=== PATIENT | male | born 1975 | race Caucasian/White ===

== ENCOUNTER → 2016-11-07 | Outpatient (REF) | payer OTHER ==
[2016-11-07 11:52] LABS: BASO % 0.5 % (0.0-1.0); EOS % 0.5 % (0.0-3.0); LYMPH % 25.5 % (24.0-44.0); MEAN CORPUSCULAR HEMOGLOBIN 29.1 pg (27.0-33.0); MEAN CORPUSCULAR HGB CONC 34.7 g/dl (32.0-36.5); MEAN CORPUSCULAR VOLUME 84.1 fl (80.0-96.0); MONO # 0.3 K/mm3 (0.0-0.8); MONO % 4.1 % (0.0-5.0); NEUTROPHILS # 5.3 K/mm3 (1.8-7.7); NEUTROPHILS % 67.6 % (36.0-66.0); RED CELL DISTRIBUTION WIDTH 12.9 % (11.5-14.5); WHITE BLOOD COUNT 7.8 K/mm3 (4.0-10.0)
[2016-11-07 12:13] LABS: ALBUMIN 4.4 GM/DL (3.2-5.2); ALBUMIN/GLOBULIN RATIO 1.26 (1.00-1.93); ALKALINE PHOSPHATASE 58 U/L (45-117); ALT/SGPT 36 U/L (12-78); ANION GAP 9 MEQ/L (8-16); AST/SGOT 18 U/L (15-37); BILIRUBIN,TOTAL 0.6 MG/DL (0.2-1.0); BLOOD UREA NITROGEN 14 MG/DL (7-18); CALCIUM LEVEL 9.4 MG/DL (8.5-10.1); CARBON DIOXIDE LEVEL 29 MEQ/L (21-32); CHLORIDE LEVEL 103 MEQ/L (98-107); CHOLESTEROL LEVEL 235 MG/DL (<200); CREATININE FOR GFR 1.13 MG/DL (0.70-1.30); GLOMERULAR FILTRATION RATE > 60.0 (>60); GLUCOSE, FASTING 92 MG/DL (70-105); POTASSIUM SERUM 4.1 MEQ/L (3.5-5.1); SODIUM LEVEL 141 MEQ/L (136-145); TOTAL PROTEIN 7.9 GM/DL (6.4-8.2); TRIGLYCERIDES LEVEL 177 MG/DL (<150)
== END ==
LOC: M LABDRAW1 11:34
PROVIDERS: ATTEND Physician Assistant Medical
DX: E78.2 Mixed hyperlipidemia (principal)

== ENCOUNTER → 2017-09-28 | Outpatient (REF) | payer OTHER | LOC: M LAB REF 14:38 | PROVIDERS: ATTEND Physician Assistant | DX: R30.0 Dysuria (principal) ==

== ENCOUNTER → 2018-04-03 | Outpatient (REF) | payer OTHER ==
[2018-04-03 13:06] LABS: BASO % 0.4 % (0.0-1.0); EOS % 0.5 % (0.0-3.0); HEMATOCRIT 47.5 % (42.0-52.0); HEMOGLOBIN 16.3 g/dl (13.5-17.5); IMMATURE GRANULOCYTE % 0.3 % (0-3.0); LYMPH % 26.3 % (24.0-44.0); MEAN CORPUSCULAR HGB CONC 34.3 g/dl (32.0-36.5); MEAN CORPUSCULAR VOLUME 84.4 fl (80.0-96.0); MONO # 0.4 10^3/uL (0.0-0.8); MONO % 4.7 % (0.0-5.0); NEUTROPHILS # 5.2 10^3/uL (1.8-7.7); NEUTROPHILS % 67.8 % (36.0-66.0); PLATELET COUNT, AUTOMATED 277 10^3/uL (150-450); RED BLOOD COUNT 5.63 10^6/uL (4.30-6.10); RED CELL DISTRIBUTION WIDTH 12.6 % (11.5-14.5); WHITE BLOOD COUNT 7.6 10^3/uL (4.0-10.0)
[2018-04-03 13:40] LABS: CONTROL LINE MONO INT CTR LINE PRESENT; MONO SCRN NEGATIVE (NEGATIVE)
[2018-04-03 14:36] LABS: CHLAMYDIA DNA AMPLIFICATION NEGATIVE (NEGATIVE); GC DNA AMPLIFICATION NEGATIVE (NEGATIVE)
[2018-04-05 00:08] LABS: Lyme Disease IgG/IgM Antibodie <0.91 ISR (0.00-0.90); Lyme Disease IgM Ab Quantitati <0.80 index (0.00-0.79)
== END ==
LOC: M LAB REF 12:52
DX: R39.15 Urgency of urination (principal); M25.50 Pain in unspecified joint; R53.83 Other fatigue

== ENCOUNTER → 2018-05-01 | Outpatient (CLI) | payer OTHER | LOC: M WUC 17:41 | DX: M25.522 Pain in left elbow (principal) | CPT/HCPCS: 73080 ==

== ENCOUNTER 2018-05-14 07:36 | Emergency (ER) | payer OTHER | END 2018-05-14 09:13 | disposition home or self-care (01) | LOC: M ED 07:36 | DX: S90.32XA Contusion of left foot, initial encounter (principal); W20.8XXA Other cause of strike by thrown, projected or falling object, initial encounter; Y92.89 Other specified places as the place of occurrence of the external cause; F17.200 Nicotine dependence, unspecified, uncomplicated | CPT/HCPCS: 73630 ==

== ENCOUNTER 2018-06-30 15:54 | Emergency (ER) | payer OTHER ==
[2018-06-30] MEDS: KETOROLAC 60 MG/2 ML VIAL (J1885) IM (17:46)
== END 2018-06-30 19:09 | disposition home or self-care (01) ==
LOC: M ED 15:54
DX: M51.37 Other intervertebral disc degeneration, lumbosacral region (principal)
CPT/HCPCS: J1885

== ENCOUNTER → 2018-11-25 | Outpatient (CLI) | payer OTHER ==
[~2018-11-25] MED LIST: NAPR-885 PO; ROBA500T PO; VOLT1GEL15 TOP
--- NOTE | 2018-11-25 09:28 | REP ---
MRI CERVICAL SPINE WITHOUT CONTRAST: HISTORY: Cervicalgia. A disc bulge and small right paracentral disc protrusion with associated osteophyte formation are present at the C3-4 level. There is mild effacement of the thecal sac without spinal cord compression. Uncinate process hypertrophy is present on the right. This produces mild narrowing of the right C3 neural foramen. The left C3 neural foramen is patent. A disc bulge is present at the C5-6 level. There is minimal effacement of the thecal sac without spinal cord compression. Uncinate process hypertrophy is present on the right. This produces minimal narrowing of the right C5 neural foramen. The left C5 neural foramen is patent. A disc bulge with associated osteophyte formation is present at the C6-7 level. There is moderate effacement of the thecal sac without spinal cord compression. Bilateral uncinate process hypertrophy is present. This produces moderate narrowing of the C6 neural foramina. There is no other disc bulge or herniation. The remaining neural foramina are patent. The spinal cord is normal in signal intensity. The C5-6 and C6-7 intervertebral discs are decreased in height consistent with disc degeneration. Normal signal intensity is present in the cervical vertebral bodies. IMPRESSION: There is cervical spondylosis at the C3-4, C5-6 and C6-7 levels without spinal cord compression. Electronically Signed by Thanh Carnes MD 11/25/2018 09:29 A
--- NOTE | 2018-11-25 09:58 | REP ---
MRI LUMBAR SPINE WITHOUT CONTRAST: HISTORY: Disc degeneration. Decreased signal intensity on T2-weighted images is present in the L2-3 through L4-S1 intervertebral discs. The discs are decreased in height. These findings are consistent with disc degeneration. There is no disc bulge or herniation at the L1-2 level. The L1 nerves exit the neural foramina without compression. A diffuse disc bulge is present at the L2-3 level. There is minimal compression of the thecal sac. The L2 nerves exit the neural foramina without compression. A diffuse disc bulge is present at the L3-4 level. There is minimal compression of the thecal sac. There is hypertrophy of the posterior articulating facets. The L3 nerves exit the neural foramina without compression. A diffuse disc bulge and small right paracentral disc extrusion are present at the L4-5 level. There is superior migration of disc material. There is minimal compression of the thecal sac. There is hypertrophy of the posterior articulating facets. The L4 nerves exit the neural foramina without compression. There appears to be a left laminectomy defect. A diffuse disc bulge is present at the L5-S1 level. There are 3 mm of retrolisthesis of L5 on S1. There is minimal compression of the thecal sac. There is hypertrophy of the posterior articulating facets. The L5 nerves exit the neural foramina without compression. There appears to be a left laminectomy defect. The conus medullaris is normal in appearance terminating at the level of the L1-2 intervertebral disc. Increased signal intensity on T2-weighted images is present in the endplates of the L5 and S1 vertebral bodies. This represents degenerative change. IMPRESSION: 1. Diffuse disc bulges at the L2-3 and L3-4 levels with minimal thecal sac compression. 2. Diffuse disc bulge and small right paracentral disc extrusion at the L4-5 level with minimal thecal sac compression. 3. Diffuse disc bulge and retrolisthesis at the L5-S1 level with minimal thecal sac compression. Electronically Signed by Thanh Carnes MD 11/25/2018 10:02 A
== END ==
LOC: M RAD 07:27
PROVIDERS: ATTEND Physician Assistant
DX: M54.2 Cervicalgia (principal); M51.26 Other intervertebral disc displacement, lumbar region

== ENCOUNTER → 2018-12-02 | Outpatient (CLI) | payer OTHER ==
[~2018-12-02] MED LIST changes: +CONRAY-43 43% 50ML VIAL (Q9960) As Ordered ONE; +PROHANCE 279.3MG/ML 5ML VIAL (A9576) As Ordered ONE
--- NOTE | 2018-12-02 10:13 | REP ---
MR arthrography right shoulder: with pre and post intra-articular gadolinium enhanced saline injected imaging: History: Prior surgery to reattach muscle to the humeral head in [place]. New pain after repeat injury. Rule out labral tear versus rotator cuff tear. No comparison imaging. Technique: The injection procedure is performed and dictated separately. Pre and post intra-articular gadolinium enhanced saline injected imaging is acquired. Imaging planes include axial, oblique coronal, oblique sagittal and ABER projection images. T1 T2-weighted scans are included with and without fat saturation. MRI findings: Pre injection MR imaging demonstrates normal alignment of the glenohumeral and acromioclavicular joints. There is osteoarthritic hypertrophy at the AC joint with minimal joint fluid. Early inferior spurring of the distal clavicle indents the musculotendinous junction of the supraspinatus. There is a surgical anchor producing magnetic field susceptibility artifact in the proximal humerus. Glenohumeral articulation is normally aligned. No significant joint fluid is seen. There is advanced tendonitis tendinosis change in the distal supraspinatus tendon with ill-defined increased signal intensity on T1 and T2-weighted scans in the distal tendon. No focal cuff tear is seen. There is a subacromial subdeltoid bursal effusion which is small. Postinjection imaging shows good filling and enhancement of the joint. There is evidence of a anterior cartilaginous labral tear on axial and ABER projection images. No displacement. The superior labrum cartilage is undermined on oblique coronal T1 fat sat images post injection consistent with a nondisplaced SLAP component tear as well. The infraspinatus, subscapularis, and biceps tendons appear to be intact. Impression: Metallic anchor in the proximal humerus. Nondisplaced SLAP and anterior labral cartilage tears. Advanced tendinosis in the supraspinatus tendon. AC joint osteoarthritis. Small subacromial subdeltoid bursal effusion. Electronically Signed by Geoffrey Flower MD 12/02/2018 07:27 P
--- NOTE | 2018-12-02 19:34 | REP ---
Procedure: Right shoulder arthrogram The procedure was performed under the direct supervision of Dr. Flower. History: Right shoulder pain The benefits and risks including but not limited to pain, infection, bleeding and anaphylaxis were explained to the patient and informed consent was obtained. Technique: The right glenohumeral joint space was localized using fluoroscopic guidance. The skin was prepped and draped in a sterile fashion. 1% lidocaine was used as a local anesthetic. Using fluoroscopic guidance a 22 gauge spinal needle was inserted and advanced into the joint. 0.5 ml of Conray 43 was injected to verify placement. 11 ml of a solution containing 20 ml of sterile saline and 0.15 ml of ProHance was injected into the joint. The needle was removed and the patient was taken to MRI for postprocedural imaging. The the patient tolerated the procedure well and there were no immediate complications. Less than 6 seconds of fluoro time was utilized for this procedure. Reviewed by DHARMESH Miranda 12/02/2018 04:42 P Electronically Signed by Geoffrey Flower MD 12/02/2018 07:26 P
== END ==
LOC: M RADPRO 06:33
PROVIDERS: ATTEND Physician Assistant
DX: M25.511 Pain in right shoulder (principal); M24.111 Other articular cartilage disorders, right shoulder; M75.80 Other shoulder lesions, unspecified shoulder; M13.811 Other specified arthritis, right shoulder
CPT/HCPCS: 23350; 73223; 77002; A9576; Q9960

== ENCOUNTER → 2018-12-09 | Outpatient (CLI) | payer OTHER ==
[~2018-12-09] MED LIST changes: -CONRAY-43 43% 50ML VIAL (Q9960) As Ordered ONE; -PROHANCE 279.3MG/ML 5ML VIAL (A9576) As Ordered ONE
--- NOTE | 2018-12-10 09:12 | REP ---
MRI LEFT ELBOW: TECHNIQUE: Multiple sequences in the axial, coronal and sagittal planes. The visualized osseous structures demonstrate normal marrow signal with no bone marrow edema or occult fracture. Biceps, brachialis, brachioradialis, and triceps demonstrate no abnormal signal with no evidence of a tear. Common flexor and extensor tendons demonstrate no abnormal signal along the humeral epicondyles. The medial and lateral collateral ligaments appear intact. Ulnar nerve is not located within the cubital tunnel as would be expected. It is more medially located, medial to the humeral epicondyle, coursing into its normal location distal to the elbow joint. This suggests the patient has had prior surgery and ulnar nerve transposition. At the level of medial displacement of the ulnar nerve it demonstrates mild enlargement and increased signal with a tiny amount of fluid or a tiny cyst along its posterior aspect, 2 mm in diameter. This could indicate ulnar neuritis. There is a normal amount of joint fluid. No ganglion cyst is seen. IMPRESSION: No occult fracture. No evidence of tendon of ligament tear. Ulnar nerve is located medially outside of the cubital tunnel, along the medial aspect of the medial humeral epicondyle. At this level it demonstrates mild enlargement with increased signal on T2-weighted images with a tiny amount of adjacent fluid or a tiny 2 mm cyst along the posterior margin. I suspect this position is secondary to prior surgery and ulnar nerve transposition. The increased signal and enlargement may be due to ulnar neuritis. Electronically Signed by Lg Washington MD 12/10/2018 08:31 P
== END ==
LOC: M RAD 15:27
PROVIDERS: ATTEND Physician Assistant
DX: M25.522 Pain in left elbow (principal)

== ENCOUNTER → 2019-01-08 | Outpatient (REF) | payer OTHER ==
[2019-01-08 22:39] LABS: CHLAMYDIA DNA AMPLIFICATION NEGATIVE (NEGATIVE); GC DNA AMPLIFICATION NEGATIVE (NEGATIVE)
== END ==
LOC: M LAB REF 19:24
PROVIDERS: ATTEND Physician Assistant
DX: R30.0 Dysuria (principal)

== ENCOUNTER 2019-04-23 11:35 | Day surgery (SDC) | payer OTHER ==
[~2019-04-23] VITALS: Ht 177.8 cm; Wt 99.8 kg
[~2019-04-23 11:35] MED LIST changes: +LIDOCAINE 1% MDV 20ML VIAL SQ PRN; +LR 1,000 ML IV ONE; +MELO15TA28 PO
[2019-04-23] MEDS ORDERED: EPINEPHrine INJ 1 MG/ML 1ML AMP ONE (11:36)
[2019-04-23] MEDS ORDERED: ROPIvacaine 0.5% 30 ML INJECTION (J2795 PER 1MG) ONE (11:36)
[2019-04-23] MEDS ORDERED: LIDOCAINE 1% MDV 20ML VIAL ONE (11:36)
[2019-04-23] MEDS ORDERED: MIDAZOLAM INJ 2 MG/2 ML VIAL (J2250) As Ordered ONE ×3 (11:59→13:03)
[2019-04-23] MEDS ORDERED: fentaNYL 100 MCG/2 ML INJECTION (J3010) As Ordered ONE (11:59)
[2019-04-23] MEDS: MIDAZOLAM INJ 2 MG/2 ML VIAL (J2250) IV SCH ×4 (12:30→12:50)
[2019-04-23] MEDS: fentaNYL 100 MCG/2 ML INJECTION (J3010) IV SCH ×2 (12:30→12:45)
[2019-04-23] MEDS ORDERED: PROPOFOL 200 MG/20 ML VIAL As Ordered ONE (13:01)
[2019-04-23] MEDS ORDERED: ONDANSETRON 4MG/2ML VIAL (J2405) As Ordered ONE (13:02)
[2019-04-23] MEDS ORDERED: ROCURONIUM BROMIDE 50 MG/5 ML VIAL As Ordered ONE ×2 (13:02→14:13)
[2019-04-23] MEDS ORDERED: dexameTHASONE 4 MG/ML 1ML VIAL (J1100) As Ordered ONE (13:02)
[2019-04-23] MEDS ORDERED: LIDOCAINE 2% INJ 100 MG/5 ML SDV (FOR ANES.) As Ordered ONE (13:02)
[2019-04-23] MEDS ORDERED: KETOROLAC 60 MG/2 ML VIAL (J1885) As Ordered ONE (13:02)
[2019-04-23] MEDS ORDERED: fentaNYL 250 MCG/5 ML INJECTION (J3010) As Ordered ONE (13:03)
[2019-04-23] MEDS ORDERED: EPINEPHrine 1MG/ML INJ 30ML MD-VIAL As Ordered ONE (14:25)
[2019-04-23] MEDS ORDERED: LIDOCAINE 1% MDV 20ML VIAL As Ordered ONE ×2 (14:25→14:27)
[2019-04-23] MEDS ORDERED: GLYCOPYRROLATE INJ 0.2 MG/ML 2 ML VIAL As Ordered ONE (15:20)
[2019-04-23] MEDS ORDERED: NEOSTIGMINE 10 MG/10 ML VIAL (J2710) As Ordered ONE (15:20)
[2019-04-23] MEDS ORDERED: ONDANSETRON 4MG/2ML VIAL (J2405) IV PRN (16:15)
[2019-04-23] MEDS ORDERED: METOCLOPRAMIDE INJ 10MG/2ML VIAL (J2765) IV PRN (16:15)
[2019-04-23] MEDS ORDERED: LR 1,000 ML IV SCH ×2 (16:15→16:30)
[2019-04-23] MEDS ORDERED: fentaNYL 100 MCG/2 ML INJECTION (J3010) IV PRN (16:15)
[2019-04-23] MEDS ORDERED: PERCOCET 5MG/325MG TAB PO PRN (16:15)
[2019-04-23 17:25] VITALS: BP 165/100
--- NOTE | 2019-04-25 08:11 | RO ---
DATE OF PROCEDURE: 04/23/2019 PREOPERATIVE DIAGNOSES: 1. Right shoulder anterior instability. 2. Right shoulder labral tear. 3. Right shoulder impingement. POSTOPERATIVE DIAGNOSES 1. Right shoulder anterior instability. 2. Right shoulder partial thickness rotator cuff tear. 3. Right shoulder impingement. PROCEDURE: 1. Right shoulder arthroscopic Bankart repair. 2. Right shoulder arthroscopic rotator cuff debridement. 3. Right shoulder arthroscopic bursectomy. SURGEON: Dr. Siddhartha Danielle. FINISHING SUPERVISOR PLASTIC SHEETS: Bill Hong PA-C ANESTHESIA: General with preoperative nerve block. IV FLUIDS: Lactated Ringer's. ESTIMATED BLOOD LOSS: 5 mL. IMPLANTS: Arthrex 3 mm BioComposite suture tack times one and Arthrex 2.9 mm BioComposite PushLock anchor times two with labral tape. Closure - nylon. DESCRIPTION OF PROCEDURE: Patient identified in preoperative holding area. The right shoulder marked by myself. An interscalene nerve block by anesthesia. He was brought to the operating room, placed supine on a well-padded operating room (OR) table. General anesthesia was induced. He received appropriate IV antibiotics within 1 hour of incision. Exam under anesthesia revealed 170 degrees of forward flexion, 80 degrees of external rotation with the shoulder at 90 and a grade 2+ anterior load and shift, grade 1 posterior load and shift. The patient then placed into the left side down lateral decubitus position with an axillary roll and all bony prominences well padded. Bilateral sequential compression stockings (SCDs) for deep venous thrombosis (DVT) prophylaxis. The right arm was placed into the Arthrex star sleeve lateral decubitus traction priest with 10 pounds of traction. Again, he received 2 grams of IV cefazolin within 1 hour of incision. The right shoulder was then prepped and draped in normal sterile fashion with Chloraprep. Prior to incision, time-out was performed per surgery center protocol. Gerardo Hong was present the entire procedure and participated in all essential portions of the procedure. This included patient positioning and draping, holding the arthroscope, providing axial traction and manipulation of the arm for the rotator cuff debridement and more importantly, for placing anchors and passing sutures. He also assisted with retrieving sutures. He also performed the wound closure. The right shoulder was insufflated lactated Ringer's and a standard posterior viewing portal made with the 11-blade. 30-degree arthroscope was introduced into the joint. Diagnostic arthroscopy was carried out revealing partial articular tearing of the anterior supraspinatus. This was a low grade partial tear. The subscapularis appeared pristine. Posterior rotator cuff intact. There was some mild fraying of the superior labrum with the biceps labral anchor but no significant superior labral tear. There was tearing of the anterior labrum from the 2-o'clock to 5:30 position with a deficient anterior inferior labrum. There was a positive drive-through sign. An anterior working portal was localized with a spinal needle just superior to the subscapularis. Purple Arthrex cannula was placed. On probing the long head of the biceps and the superior labrum, there were no unstable tears. The biceps tendon was brought into the joints and there is no significant tearing. I used the shaver to perform a debridement of the superior labrum and debrided some redundant frayed anterior labrum around the 1-2-o'clock position. A probe was used and I was able to develop the plane between cartilage and labrum for the remaining anterior labral tear. Next an accessory superolateral portal was placed through the rotator interval just anterior the biceps. A second cannula was placed. Next, we used a hook cautery to develop the plane between the articular cartilage and anterior labrum and this was developed along the anterior glenoid neck. Next, labral elevators were used to sub-periosteally elevate labrum and capsule off the glenoid. A rasp was then used to create a bleeding surface and the shaver was used on the bur setting to also create some bleeding. Next, we placed a 3 mm Arthrex suture tack around the 5-o'clock position. This had great fixation. This was a double-loaded anchor, one of the limbs was purposely unloaded. I then passed the other suture, both limbs of FiberWire, in a horizontal mattress fashion through the anterior band of the inferior glenohumeral ligament. Sutures were passed around the 5:30 position. My assistant basketball coach then applied posterior vector to the proximal humerus and arthroscopic knots were tied with alternating half hitches with a knot pusher. The arthroscopic corn cutter was then used and this nicely restore the anterior inferior bumper. Next the suture lasso was used to pass to shuttle labral tape to labrum and capsule just superior to the initial anchor. I then drilled for 2.9 mm PushLock anchor. Suture was tensioned, anchor was docked and then malleted into place at the 4-o'clock position. This again restored the bumper nicely. Sutures cut with arthroscopic corn cutter. Those same steps were repeated for a second PushLock anchor that was placed just above the 3-o'clock position. That anchor also had excellent fixation. I did not feel that a fourth anchor was necessary at the 2-o'clock position. The labral tear was then probed and found to be tight. I should mention I previously used the shaver to perform a rotator cuff debridement of the anterior supraspinatus. The scope was then placed into the anterior superior portal giving a direct view down to glenoid and the humeral head was centered nicely on the glenoid. There is no posterior labral tearing. The arthroscope was placed into the subacromial space where there was extensive bursitis. Lateral working portal established and shaver and cautery used to perform a bursectomy. There was no significant subacromial spur. There was a moderate bursal-sided tear of the supraspinatus and I used the shaver to carefully perform a limited rotator cuff debridement. I would estimate that bursal sided-tear at least 33%. Definitely less than 50%. The shoulder was then irrigated and drained. Portals closed with nylon suture. At the time of this dictation, the patient is about to be extubated and transferred to the post anesthesia care unit (PACU). He will be in a sling. All counts were correct times two. COMPLICATIONS: None.
== END 2019-04-23 17:30 | disposition home or self-care (01) ==
LOC: M SDC 11:35
PROVIDERS: ATTEND Orthopaedic Surgery
DX: M25.311 Other instability, right shoulder (principal); M75.111 Incomplete rotator cuff tear or rupture of right shoulder, not specified as traumatic; M75.41 Impingement syndrome of right shoulder; Z79.899 Other long term (current) drug therapy
CPT/HCPCS: 29806; 29823; 64415; C1713; J0690; J1100; J1885; J2250; J2405; J2710; J2795; J3010

== ENCOUNTER → 2019-08-11 | Outpatient (REF) | payer OTHER ==
[~2019-08-11] MED LIST changes: -LIDOCAINE 1% MDV 20ML VIAL SQ PRN; -LR 1,000 ML IV ONE
[2019-08-11 12:08] LABS: APPEARANCE, URINE CLEAR (CLEAR); BACTERIA, URINE AUTO NEGATIVE (NEGATIVE); BILIRUBIN, URINE AUTO NEGATIVE (NEGATIVE); BLOOD, URINE BLOOD NEGATIVE (NEGATIVE); COLOR, URINE YELLOW (YELLOW); GLUCOSE, URINE (UA) AUTO NEGATIVE (NEGATIVE); KETONE, URINE AUTO NEGATIVE (NEGATIVE); LEUKOCYTE ESTERASE, URINE AUTO NEGATIVE (NEGATIVE); NITRITE, URINE AUTO NEGATIVE (NEGATIVE); PROTEIN, URINE AUTO NEGATIVE (NEGATIVE); RBC, URINE AUTO 0 /HPF (0-3); SPECIFIC GRAVITY URINE AUTO 1.023 (1.002-1.035); SQUAMOUS EPITHELIAL CELL UR AU 0 /HPF (0-6); UROBILINOGEN, URINE AUTO 0.2 mg/dL (0.0-2.0); WBC, URINE AUTO 2 /HPF (0-3)
== END ==
LOC: M LAB REF 11:47
PROVIDERS: ATTEND Physician Assistant Medical
DX: N39.0 Urinary tract infection, site not specified (principal)

== ENCOUNTER → 2020-06-10 | Outpatient (CLI) | payer OTHER ==
[~2020-06-10] MED LIST changes: +ISOVUE-300 61% 50ML VIAL As Ordered ONE; +PROHANCE 279.3MG/ML 5ML VIAL As Ordered ONE
--- NOTE | 2020-06-23 15:17 | REP ---
MR ARTHROGRAM RIGHT SHOULDER HISTORY: Shoulder pain. COMPARISON: MRI 12/02/2018. CORRELATION: Operative notes dated 04/23/2019, on that date arthroscopic Bankart repair was performed in addition to rotator cuff debridement and bursectomy. FINDINGS: Multiple sequences obtained in various planes of the right shoulder prior to and following arthrogram procedure. Supraspinatus tendon demonstrates mild tendinosis. No new rotator cuff tendon tear is seen. There are mild hypertrophic degenerative changes of the acromioclavicular joint. Acromion is mildly downward sloping and is type 2. Biceps tendon is within the bicipital groove with no tenosynovitis. There is no Hill-Sachs deformity. Deltoid muscle demonstrates no abnormal signal. Superior labrum appears unchanged with no new tear. Two surgical anchors are seen in the anterior glenoid from the prior Bankart repair. On the post arthrogram images, there appears to be mild fraying of the inferior aspect of the anterior labrum with a discreet tear. There is mild chondromalacia at the glenohumeral joint. Small subcortical cyst is seen in the superolateral humeral head. Otherwise no abnormal marrow signal is seen. There is no significant joint effusion. IMPRESSION: Mild supraspinatus tendinopathy with improvement of the abnormal signal on T2 weighted images when compared to the prior study of 12/02/2018. No new rotator cuff tendon tear. Mild hypertrophic degenerative changes of the acromioclavicular joint. In the region of prior surgery, at the inferior aspect of the anterior labrum, there appears to be mild fraying of the labrum without a discreet labral tear. Superior labrum appears unchanged. Mild chondromalacia of the glenohumeral joint. MTDD
--- NOTE | 2020-06-23 15:22 | REP ---
RIGHT SHOULDER ARTHROGRAM The procedure was performed under the direct supervision of Dr. Washington. The benefits and risks including, but not limited to pain, infection, bleeding, and anaphylaxis were explained to the patient and informed consent was obtained. The right glenohumeral joint space was localized using fluoroscopic guidance. The skin was prepped and draped in a sterile fashion. 1% Lidocaine was used as a local anesthetic. Using fluoroscopic guidance, a 22-gauge spinal needle was inserted and advanced into the joint. 0.5 mL of Isovue-300 was injected to verify placement. 11 mL of a solution containing 20 mL of sterile saline and 0.15 mL of ProHance was injected. The needle was removed and the patient was taken to MRI for postprocedural imaging. The patient tolerated the procedure well and there were no immediate complications. Less than 6 seconds of fluoroscopy time was utilized for this procedure. DARRYL
== END ==
LOC: M RADPRO 06:45
PROVIDERS: ATTEND Nurse Practitioner Family
DX: R93.7 Abnormal findings on diagnostic imaging of other parts of musculoskeletal system (principal); M25.511 Pain in right shoulder
CPT/HCPCS: 23350; 73223; 77002; A9576; Q9967

== ENCOUNTER → 2020-11-10 | Outpatient (CLI) | payer SELFPAY ==
[~2020-11-10] MED LIST changes: -ISOVUE-300 61% 50ML VIAL As Ordered ONE; -PROHANCE 279.3MG/ML 5ML VIAL As Ordered ONE
== END ==
LOC: M LABSMTC 10:15
PROVIDERS: ATTEND Pediatrics
DX: Z20.822 Contact with and (suspected) exposure to COVID-19 (principal)

== ENCOUNTER 2021-08-07 07:51 | Emergency (ER) | payer OTHER, SELFPAY ==
[~2021-08-07] VITALS: Ht 177.8 cm; Wt 100.4 kg
[2021-08-07 07:52] VITALS: BP 145/80
--- OUTSIDE RECORDS SUMMARY | 2021-08-07 07:57 | CCD | Continuity of Care Document ---
Author Author Ajay JOSUE P.ALacy Organization Unknown Address [address] [place] [id number] Phone [phone] Care Team Providers Care Acupuncture Physician Name Role Phone Wilfredo Johnson MD AUTDennis Unavailable Problems Description No Information Available Social History Type Date Description Comments Sex Unknown ETOH Use Occasionally consumes alcohol Recreational Drug Use Current Drug User smoke ma ijuana Tobacco Use Start: Unknown End: Unknown Patient is a former smoker Allergies, Adverse Reactions, Alerts Active Allergies Criticality Reaction | Severity Comments Date Duloxetine Unable to assess criticality Abdominal p ain, Anxiety, Unconsciousness | Severe 08/03/2020 Medications Active Medications SIG Qnty Indications Ordering Provide r Date Pregabalin 75mg Capsules 1 by mouth twice a day (comp) 60caps M47.22 Jos De León MD 10/13/2020 Naproxen 500mg Tablets 1 by mouth twice a day (comp) 42tabs M47.22 Jos De León MD 08/03/2020 Immunizations Description No Information Available Vital Signs Date Vital Result Comment 08/03/2020 2:02pm Body Temperature 97.7 F 05/13/2020 9:14am Body Temperature 97.0 F Results Description No Information Available Procedures Date Code Description Status 06/01/2021 53536 Office/Outpatient Established Mo d MDM 30-39 Min Completed Medical Devices Description No Information Available Encounters Type Date Location Provider Dx Diagnosis Office Visit 06/01/2021 8:30a Saritha Flores M47.22 Other spondylosis with radiculopathy, cervical region M50.31 Other cervical disc degenera tion, high cervical region M48.02 Spinal stenosis, cervical re gion M47.27 Other spondylosis with radic ulopathy, lumbosacral region M51.37 Other intervertebral disc de generation, lumbosacral region M51.27 Other intervertebral disc di splacement, lumbosacral region M50.320 Other cerv disc degeneration , mid-cervical rgn, unsp level Assessments Date Code Description Provider 06/01/2021 M47.22 Other spondylosis with radiculop athy, cervical region Ajay Josue, P.A. 06/01/2021 M50.31 Other cervical disc degeneration , high cervical region Ajay Josue, P.A. 06/01/2021 M48.02 Spinal stenosis, cervical region Ajay Josue, P.A. 06/01/2021 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 06/01/2021 M51.37 Other intervertebral disc degene ration, lumbosacral region Ajay Josue, P.A. 06/01/2021 M51.27 Other intervertebral disc displa cement, lumbosacral region Ajay Josue, P.A. 06/01/2021 M50.320 Other cervical disc degeneration, mid-cervical region, unspecified level Ajay Josue, P.A. Plan of Treatment 06/01/2021 - Ajay Josue, P.A.* M47.22 Other spondylosis with radiculopathy, cervical region * M50.31 Other cervical disc degeneration, high cervical region * M48.02 Spinal stenosis, cervical region* New Xrays:* MRI Cervical Spine, Ordered: 06/01/21 * Follow up:* with [facility] after mri for results * M47.27 Other spondylosis with radiculopathy, lumbosacral region * M51.37 Other intervertebral disc degeneration, lumbosacral region* New Xrays: * MRI Lumbar Spine, Ordered: 06/01/21 * M51.27 Other intervertebral disc displacement, lumbosacral region * M50.320 Other cervical disc degeneration, mid-cervical region, unspecified level Functional Status Description No Information Available Mental Status Description No Information Available Referrals Description No Information Available"
--- OUTSIDE RECORDS SUMMARY | 2021-08-07 07:58 | CCD ---
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 Date Data Source [id number] 07/11/2020 09:25:30 AM EDT [facility] Name Value Range Interpretation Code Description Data Etta rce(s) Supporting Document(s) Progress Note [facility] VMDRKg9iLrBBHaFu13/UYQacTOVyr6ThVCgqRUk7KQjfNBGvW0KbLKB4iU2rAJN5VNsTBsBfKiVkOBX9 lbm [file] ToF1DiRqVOYbXbNuYtL7GDZvOpF3MCHpHuJ8FtDv UN9KMp3VFpK5ECD7vMJjPz4YCiT0PqLBKeKjDT2ZGVo= Procedure Social History Code Duration Value Status Description Data Source(s ) Alcohol intake 07/22/2020 12:00:00 AM EDT Current drinker of al cohol (finding) completed Current drinker of alcohol (finding) [facility] Tobacco use and exposure 07/22/2020 12:00:00 AM EDT Never used co mpleted Never used [facility] Smoking 07/22/2020 12:00:00 AM EDT Current every day smoker co mpleted Current every day smoker [facility] Alcohol intake 07/11/2020 12:00:00 AM EDT Current drinker of al cohol (finding) completed Current drinker of alcohol (finding) [facility] Vital Signs ID Date Data Source UNK Name Value Range Interpretation Code Description Data Source(s) Body temperature 97.7 [degF] 97.7 [degF] [facility] ([facility]) ID Date Data Source [id number] 07/25/2020 03:53:36 PM EDT [facility] Name Value Range Interpretation Code Description Data Source(s) WEIGHT RECORDED 210 lb 210 lb [facility] Body height Measured 70 in 70 in [facility] ID Date Data Source [id number] 07/20/2020 02:01:16 PM EDT [facility] Name Value Range Interpretation Code Description Data Source(s) WEIGHT RECORDED 210 lb 210 lb [facility] Body height Measured 70 in 70 in [facility] Patient Treatment Plan of Care Planned Activity Planned Date Details Description Data Source (s) Diclofenac Sodium 0.01 MG/MG Topical Gel 07/22/2020 12:00:00 AM [facility] Lidocaine 0.04 MG/MG Topical Gel 07/22/2020 12:00:00 AM [facility]
--- OUTSIDE RECORDS SUMMARY | 2021-08-07 07:58 | CCD | Continuity of Care Document ---
Author Author Ajay JOSUE PMellissa Organization Unknown Address [address] [place] [address], [address] [address] Phone [phone] Care Team Providers Care Metallurgical Specialist Name Role Phone Wilfredo Johnson MD AUTDennis [...] F Results Description No Information Available Procedures Description No Information Available Medical Devices Description No Information Available Encounters Description No Information Available Assessments Date Code Description Provider 06/01/2021 M47.22 Other spondylosis with radiculop athy, cervical region Saritha Galvan 06/01/2021 M50.31 Other cervical disc degeneration , high cervical region Saritha Galvan 06/01/2021 M48.02 Spinal stenosis, cervical region Saritha Galvan 06/01/2021 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 06/01/2021 M51.37 Other intervertebral disc degene ration, lumbosacral region Norris GalvanA. 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 06/01/2021 M50.320 Other cervical disc degeneration, mid-cervical region, unspecified level Saritha Galvan Plan of Treatment 06/01/2021 - Shira Galvan.* M47.22 Other spondylosis with radiculopathy, cervical region * M50.31 Other cervical disc degeneration, high cervical region * M48.02 Spinal stenosis, cervical region* New Xrays:* MRI Cervical Spine, Ordered: 06/01/21 * Follow up:* with [facility] after mri for results * M47.27 Other [...]
[2021-08-07 09:07] LABS: RSV AMPLIFICATION NEGATIVE (NEGATIVE)
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
== END 2021-08-07 11:39 | disposition left against medical advice (07) ==
LOC: M ED 07:51
DX: Z53.29 Procedure and treatment not carried out because of patient's decision for other reasons (principal)

== ENCOUNTER → 2021-09-27 | Outpatient (CLI) | payer OTHER ==
--- NOTE | 2021-09-27 16:19 | REP ---
INDICATION: DDD LUMBAR SPINE LBP / SPINAL STENOSIS CERVICAL. COMPARISON: 11/25/2018. TECHNIQUE: Multiple sequences in the sagittal and axial planes. FINDINGS: There is no compression fracture. There is normal alignment. No abnormal signal is seen in the cervical spinal cord. There is diffuse loss of water signal and disc degeneration. There is mild disc space narrowing at C6-7. At C2-3 there is no significant disc bulge or herniation. There is no spinal stenosis or foraminal narrowing. At C3-4 there is moderate right paracentral and foraminal disc spur complex. Uncovertebral hypertrophic changes are present. There is moderate right lateral recess and foraminal stenosis. The exiting nerve root appears somewhat compressed on the right. These findings are quite similar to the prior exam. C4-5 there is stable mild diffuse posterior disc bulging with mild effacement of thecal sac. Uncovertebral and facet hypertrophic changes are seen. There is mild bilateral foraminal narrowing. At C5-6 there is stable mild diffuse posterior bulging with mild effacement of the thecal sac. Uncovertebral and facet hypertrophic changes are seen. There is mild bilateral foraminal narrowing. At C6-7 there is stable moderate diffuse disc bulging with uncovertebral hypertrophic change and moderate degenerative changes at the facets. There is mild central canal narrowing. There is moderate bilateral foraminal narrowing. IMPRESSION: Multilevel degenerative disc changes as discussed in detail above, appear stable compared to the prior study. <Electronically signed by Lg [place] > 09/27/21 [id number]
--- NOTE | 2021-09-27 16:30 | REP ---
INDICATION: DDD LUMBAR SPINE LBP / SPINAL STENOSIS CERVICAL. COMPARISON: 11/25/2018. TECHNIQUE: Multiple sequences in the sagittal and axial planes. FINDINGS: There is no compression fracture. There is mild degenerative retrolisthesis of L5 over S1, unchanged. Remaining vertebral bodies are well aligned. The conus is unremarkable. At L1-2 and L2-3 there is no significant disc bulging or herniation. There is no spinal stenosis or foraminal narrowing. At L3-4 there is a small right foraminal protrusion which mildly narrows the right neural foramen. Spinal canal is adequate. At L4-5 there is a small Schmorl's node at the inferior aspect of L4 with degenerative signal at this location is well. There is disc desiccation with mild disc space narrowing at L4-5. Diffuse disc bulging is present unchanged. Moderate facet hypertrophy is again noted. There has been a left hemilaminectomy at this level. There is no spinal canal narrowing. There is mild right and moderate left foraminal narrowing. At L5-S1 there is severe disc degeneration and disc space narrowing with degenerative signal along the inferior endplate of L5 and superior endplate of S1. Schmorl's node is noted at the superior endplate of S1 as well. Diffuse disc bulging is unchanged. It is somewhat asymmetric, greater to the left of midline laterally. There has been a left hemilaminectomy. There is facet hypertrophic change. There is no narrowing of the spinal canal. There is mild bilateral foraminal narrowing. IMPRESSION: Stable multilevel degenerative disc changes as discussed in detail above. <Electronically signed by Lg [place] > 09/27/21 [id number]
== END ==
LOC: M PLARAD 09-08 12:25 → M RAD 07:01
PROVIDERS: ATTEND Physician Assistant
DX: M51.37 Other intervertebral disc degeneration, lumbosacral region (principal); M51.36 Other intervertebral disc degeneration, lumbar region; M48.061 Spinal stenosis, lumbar region without neurogenic claudication; M48.02 Spinal stenosis, cervical region; M51.46 Schmorl's nodes, lumbar region; M51.26 Other intervertebral disc displacement, lumbar region; M51.27 Other intervertebral disc displacement, lumbosacral region; M50.222 Other cervical disc displacement at C5-C6 level; M50.223 Other cervical disc displacement at C6-C7 level

== ENCOUNTER → 2022-02-27 | Outpatient (CLI) | payer OTHER ==
[2022-02-27 10:50] LABS: BLOOD UREA NITROGEN 14 MG/DL (7-18); CALCIUM LEVEL 9.6 MG/DL (8.5-10.1); CARBON DIOXIDE LEVEL 27 MEQ/L (21-32); CHLORIDE LEVEL 108 MEQ/L (98-107); CREATININE FOR GFR 1.07 MG/DL (0.70-1.30); GLOMERULAR FILTRATION RATE > 60.0 (>60); GLUCOSE, FASTING 77 MG/DL (70-100); POTASSIUM SERUM 4.7 MEQ/L (3.5-5.1); SODIUM LEVEL 138 MEQ/L (136-145)
== END ==
LOC: M EKG 09:22
PROVIDERS: ATTEND Orthopaedic Surgery
DX: Z01.818 Encounter for other preprocedural examination (principal)

== ENCOUNTER → 2022-03-02 | Outpatient (CLI) | payer OTHER | LOC: M LABSMTC 09:08 | PROVIDERS: ATTEND Orthopaedic Surgery | DX: Z01.812 Encounter for preprocedural laboratory examination (principal); M75.41 Impingement syndrome of right shoulder ==

== ENCOUNTER → 2023-03-26 | Outpatient (CLI) | payer OTHER | LOC: M PLAIMG 08:01 | PROVIDERS: ATTEND Plastic Surgery Surgery of the Hand | DX: G89.29 Other chronic pain (principal); M75.01 Adhesive capsulitis of right shoulder; M25.511 Pain in right shoulder ==

== ENCOUNTER → 2023-08-14 | Outpatient (CLI) | payer OTHER | LOC: M PLAIMG 06:48 | PROVIDERS: ATTEND Physician Assistant | DX: M51.36 Other intervertebral disc degeneration, lumbar region (principal); M51.26 Other intervertebral disc displacement, lumbar region; M99.63 Osseous and subluxation stenosis of intervertebral foramina of lumbar region ==

== ENCOUNTER → 2024-06-02 | Outpatient (REF) | payer OTHER, MEDICAID ==
[2024-06-02 13:00] LABS: BASO % 0.5 % (0.0-1.0); EOS # 0.1 10^3/uL (0.0-0.5); EOS % 0.9 % (0.0-3.0); HEMOGLOBIN 16.4 g/dl (13.5-17.5); LYMPH # 1.9 10^3/uL (1.5-5.0); LYMPH % 24.5 % (24.0-44.0); MEAN CORPUSCULAR HEMOGLOBIN 29.4 pg (27.0-33.0); MEAN CORPUSCULAR HGB CONC 34.2 g/dl (32.0-36.5); MEAN CORPUSCULAR VOLUME 86.2 fl (80.0-96.0); MONO # 0.5 10^3/uL (0.0-0.8); MONO % 6.1 % (2.0-8.0); NEUTROPHILS # 5.2 10^3/uL (1.5-8.5); NEUTROPHILS % 67.4 % (36.0-66.0); PLATELET COUNT, AUTOMATED 275 10^3/uL (150-450); RED BLOOD COUNT 5.57 10^6/uL (4.30-6.10); WHITE BLOOD COUNT 7.8 10^3/uL (4.0-10.0)
[2024-06-02 13:26] LABS: TOTAL 25(OH) VITAMIN D 27.1 NG/ML (20.0-100.0)
[2024-06-02 13:27] LABS: ALKALINE PHOSPHATASE 56 U/L (46-116); ALT/SGPT 40 U/L (7.0-40); AST/SGOT 19 U/L (<34); BILIRUBIN,TOTAL 0.7 MG/DL (0.3-1.2); BLOOD UREA NITROGEN 12 MG/DL (9-23); CALCIUM LEVEL 9.8 MG/DL (8.5-10.1); CARBON DIOXIDE LEVEL 30 MMOL/L (20-31); CHLORIDE LEVEL 107 MMOL/L (98-107); CHOLESTEROL LEVEL 248 MG/DL (<200); CHOLESTEROL RISK RATIO 6.83 (<5); GLOMERULAR FILTRATION RATE > 60.0 (>56); GLUCOSE, FASTING 82 MG/DL (60-100); HDL CHOLESTEROL 36.3 MG/DL (>40); LDL CHOLESTEROL 167.5 MG/DL (<100); NON-HDL-C 211.7 MG/DL; POTASSIUM SERUM 4.6 MMOL/L (3.5-5.1); PTH INTACT 41.4 PG/ML (18.5-88.0); SODIUM LEVEL 141 MMOL/L (136-145); TOTAL PROTEIN 7.4 G/DL (5.7-8.2); TRIGLYCERIDES LEVEL 221 MG/DL (<150)
== END ==
LOC: M SFHCLERA 07:52
PROVIDERS: ATTEND Family Medicine
DX: Z00.00 Encounter for general adult medical examination without abnormal findings (principal); E78.5 Hyperlipidemia, unspecified; E83.52 Hypercalcemia; D58.2 Other hemoglobinopathies

== ENCOUNTER → 2024-06-22 | Outpatient (CLI) | payer OTHER | LOC: M PLAIMG 10:38 | PROVIDERS: ATTEND Family Medicine | DX: R10.32 Left lower quadrant pain (principal); K40.20 Bilateral inguinal hernia, without obstruction or gangrene, not specified as recurrent; K42.9 Umbilical hernia without obstruction or gangrene; D17.5 Benign lipomatous neoplasm of intra-abdominal organs; M47.817 Spondylosis without myelopathy or radiculopathy, lumbosacral region; M16.0 Bilateral primary osteoarthritis of hip; R93.3 Abnormal findings on diagnostic imaging of other parts of digestive tract ==

== ENCOUNTER → 2024-10-29 | Outpatient (REF) | payer MEDICAID, OTHER | LOC: M SFHCPLAZ 16:55 | PROVIDERS: ATTEND Physician Assistant Medical | DX: J01.80 Other acute sinusitis (principal) ==

== ENCOUNTER → 2024-12-01 | Outpatient (CLI) | payer OTHER | LOC: M PLAIMG 07:03 | PROVIDERS: ATTEND Orthopaedic Surgery | DX: Z53.9 Procedure and treatment not carried out, unspecified reason (principal) ==

== ENCOUNTER → 2025-10-01 | Outpatient (REF) | payer OTHER, MEDICAID, SELFPAY, MEDICARE | LOC: M LAB REF 12:59 | PROVIDERS: ATTEND Physician Assistant | DX: J06.9 Acute upper respiratory infection, unspecified (principal) ==